=== PATIENT | male | born 1955 | race Caucasian/White ===

== ENCOUNTER 2017-07-09 09:18 | Outpatient (CLI) | payer BC, OTHER | END 2017-07-09 09:19 | disposition home or self-care (01) | LOC: CTENTCT 09:18 | PROVIDERS: ATTEND Specialist | DX: R09.82 Postnasal drip (principal) | CPT/HCPCS: 70486 ==

== ENCOUNTER 2021-02-11 09:52 | Outpatient (CLI) | payer MEDICARE, OTHER | END 2021-02-11 09:53 | disposition home or self-care (01) | LOC: SCSMRI 09:52 | PROVIDERS: ATTEND Family Medicine | DX: M54.42 Lumbago with sciatica, left side (principal); R20.2 Paresthesia of skin; E66.9 Obesity, unspecified; M47.816 Spondylosis without myelopathy or radiculopathy, lumbar region; M48.061 Spinal stenosis, lumbar region without neurogenic claudication; M43.16 Spondylolisthesis, lumbar region; M51.16 Intervertebral disc disorders with radiculopathy, lumbar region | CPT/HCPCS: 72148 ==

== ENCOUNTER 2021-09-04 09:30 | Outpatient (CLI) | payer MEDICARE, OTHER | END 2021-09-04 09:31 | disposition home or self-care (01) | LOC: SCSCT 09:30 | PROVIDERS: ATTEND Neurological Surgery | DX: M54.50 Low back pain, unspecified (principal); M25.551 Pain in right hip; M47.816 Spondylosis without myelopathy or radiculopathy, lumbar region; M51.36 Other intervertebral disc degeneration, lumbar region; M51.37 Other intervertebral disc degeneration, lumbosacral region; M48.061 Spinal stenosis, lumbar region without neurogenic claudication; M48.07 Spinal stenosis, lumbosacral region | CPT/HCPCS: 72131 ==

== ENCOUNTER 2021-09-11 15:39 | Outpatient (CLI) | payer MEDICARE, OTHER | END 2021-09-11 15:40 | disposition home or self-care (01) | LOC: SCSRAD 15:39 | PROVIDERS: ATTEND Neurological Surgery | DX: M47.26 Other spondylosis with radiculopathy, lumbar region (principal); M25.552 Pain in left hip; M25.562 Pain in left knee; M47.27 Other spondylosis with radiculopathy, lumbosacral region; M51.16 Intervertebral disc disorders with radiculopathy, lumbar region; M43.16 Spondylolisthesis, lumbar region | CPT/HCPCS: 72100 ==

== ENCOUNTER 2021-09-12 14:54 | Outpatient (CLI) | payer MEDICARE, OTHER | END 2021-09-12 14:55 | disposition home or self-care (01) | LOC: SCSMRI 14:54 | PROVIDERS: ATTEND Neurological Surgery | DX: M47.26 Other spondylosis with radiculopathy, lumbar region (principal); M51.16 Intervertebral disc disorders with radiculopathy, lumbar region; M79.604 Pain in right leg; M48.061 Spinal stenosis, lumbar region without neurogenic claudication; M48.07 Spinal stenosis, lumbosacral region; M43.16 Spondylolisthesis, lumbar region; M51.87 Other intervertebral disc disorders, lumbosacral region; Z98.890 Other specified postprocedural states | CPT/HCPCS: 72148 ==

== ENCOUNTER 2021-09-18 13:57 | Emergency (ER) | payer MEDICARE, OTHER ==
[2021-09-18] MEDS ORDERED: HYDROcodone/Acetaminophen 10/325 mg Tablet ONE (16:41)
== END 2021-09-18 19:18 | disposition home or self-care (01) ==
LOC: ERS 13:57
DX: S80.11XA Contusion of right lower leg, initial encounter (principal); G89.29 Other chronic pain; M54.50 Low back pain, unspecified; I10 Essential (primary) hypertension; E78.5 Hyperlipidemia, unspecified; Z79.899 Other long term (current) drug therapy; W19.XXXA Unspecified fall, initial encounter; M25.551 Pain in right hip; M25.552 Pain in left hip; M79.605 Pain in left leg; M79.604 Pain in right leg

== ENCOUNTER 2021-10-23 12:40 | Outpatient (CLI) | payer MEDICARE | END 2021-10-23 12:41 | disposition home or self-care (01) | LOC: SCSMRI 12:40 | PROVIDERS: ATTEND Neurological Surgery | DX: M25.551 Pain in right hip (principal); M79.604 Pain in right leg; S73.191A Other sprain of right hip, initial encounter; M67.853 Other specified disorders of tendon, right hip; M25.452 Effusion, left hip ==

== ENCOUNTER 2022-06-16 09:58 | Outpatient (CLI) | payer MEDICARE, OTHER | END 2022-06-16 09:59 | disposition home or self-care (01) | LOC: TBSIIMAG 09:58 | PROVIDERS: ATTEND Neurological Surgery | DX: M54.50 Low back pain, unspecified (principal); M47.816 Spondylosis without myelopathy or radiculopathy, lumbar region; R29.890 Loss of height; M47.817 Spondylosis without myelopathy or radiculopathy, lumbosacral region | CPT/HCPCS: 72120 ==

== ENCOUNTER 2024-10-09 08:29 | Day surgery (SDC) | payer MEDICARE, OTHER ==
[2024-10-06 11:03] VITALS: BMI 32.5
[2024-10-09] MEDS ORDERED: Heparin 5,000 UNITS/ML VIAL ONE (10:27)
[2024-10-09] MEDS ORDERED: PROPOFOL 20 ML ONE ×2 (10:42→15:19)
[2024-10-09] MEDS ORDERED: fentaNYL PF 100 MCG/2 ML SYRINGE ONE ×2 (10:43→15:47)
[2024-10-09] MEDS ORDERED: Rocuronium Bromide 10 MG/ML (10ML VIAL) ONE (11:50)
[2024-10-09] MEDS ORDERED: Lidocaine 1% PF 5 ML VIAL ONE (11:50)
[2024-10-09] MEDS ORDERED: CEFAZOLIN 1 GM VIAL ONE ×2 (11:51→14:01)
[2024-10-09] MEDS ORDERED: Ophthalmic Irrigation Solution 15 ML ONE (12:52)
[2024-10-09] MEDS ORDERED: Bupivacaine 0.25% HCL 30 ML VIAL ONE (12:53)
[2024-10-09] MEDS ORDERED: Glycopyrrolate 0.2 MG/ML 5 ML SYRINGE ONE (15:04)
[2024-10-09] MEDS ORDERED: Ondansetron PF 4 MG/2 ML Vial ONE (15:12)
[2024-10-09] MEDS ORDERED: SUGAMMADEX SODIUM 200 MG/2 ML VIAL ONE (15:19)
[2024-10-09] MEDS ORDERED: HYDROmorphone 0.5 MG/0.5 ML SYRINGE ONE (16:22)
[2024-10-09] MEDS ORDERED: HYDROcodone/Acetaminophen 5/325 mg Tablet ONE (16:24)
== END 2024-10-09 17:28 | disposition home or self-care (01) ==
LOC: SDC 08:29
PROVIDERS: ATTEND Plastic Surgery
DX: C44.319 Basal cell carcinoma of skin of other parts of face (principal); Z90.89 Acquired absence of other organs; Z88.8 Allergy status to other drugs, medicaments and biological substances
CPT/HCPCS: 11404; 11642; 12052; 13101; 13102; 38500; C9756; 78195; 88305; 88307; 88331; 88332; 88342; A9541; J0169; J0665; J0690; J1171; J1644; J2405; J2704; J3010; Q9968

== ENCOUNTER 2024-12-29 11:03 | Outpatient (CLI) | payer MEDICARE, OTHER | END 2024-12-29 11:04 | disposition home or self-care (01) | LOC: SCSMRI 11:03 | PROVIDERS: ATTEND Family Medicine Sports Medicine | DX: S83.242A Other tear of medial meniscus, current injury, left knee, initial encounter (principal); M25.462 Effusion, left knee; M24.19 Other articular cartilage disorders, other specified site; M76.9 Unspecified enthesopathy, lower limb, excluding foot ==